=== PATIENT | female | born 1960 | race Two or more races ===

== ENCOUNTER 2024-07-29 07:40 | Day surgery (SDC) | payer OTHER ==
[2024-07-23 10:19] VITALS: BP 160/90
[~2024-07-29] VITALS: Ht 160 cm; Wt 74.8 kg
[~2024-07-29 07:40] MED LIST: CANDESARTAN CIL16 MG PO; EZALLOR SPRINKL10 MG PO; FENOFIBRATE150 MG; FINASTERIDE
[2024-07-29] MEDS ORDERED: POVIDONE-IODINE 118 ML BOTT TOP ONE (10:46)
[2024-07-29] MEDS ORDERED: CEFOXITIN SODIUM 2,000 MG VIAL IV ONE (10:47)
[2024-07-29] MEDS ORDERED: PROMETHAZINE HCL 50 MG/ML AMPUL IM ONE (11:45)
[2024-07-29] MEDS ORDERED: MORPHINE SULFATE 4 MG/ML VIAL IV PRN (11:45)
[2024-07-29] MEDS ORDERED: MONODOX100 MG PO (11:51)
[2024-07-29] MEDS ORDERED: NAPR500T14 PO (11:51)
== END 2024-07-29 16:50 | disposition home or self-care (01) ==
LOC: CIR.AMB 07:40
PROVIDERS: ATTEND Obstetrics & Gynecology
DX: N84.0 Polyp of corpus uteri (principal); N95.0 Postmenopausal bleeding; N93.8 Other specified abnormal uterine and vaginal bleeding